=== PATIENT | female | born 1955 | race Caucasian/White ===

== ENCOUNTER 2020-11-16 07:35 | Outpatient (CLI) | payer BC, SELFPAY ==
[2020-11-16 07:45] VITALS: BP 129/72; PULSE 78; RESP 16; TEMP 36.4; O2SAT 98
[2020-11-16 08:11] VITALS: BP 116/67; PULSE 54; RESP 16; O2SAT 99
[2020-11-16 09:08] VITALS: BP 107/66; PULSE 57; RESP 16; TEMP 36.7; O2SAT 99
== END 2020-11-16 13:02 | disposition home or self-care (01) ==
PROVIDERS: PCP Nurse Practitioner Family; Visit Provider Nurse Practitioner Family
DX: U07.1 COVID-19 (principal)
CPT/HCPCS: 96365